=== PATIENT | male | born 1970 | race African-American/Black ===

== ENCOUNTER 2019-06-26 10:33 | Emergency (ER) | payer SELFPAY ==
[~2019-06-26] VITALS: Ht 175.3 cm; Wt 106.6 kg
[2019-06-26 10:42] VITALS: BP 136/79
--- NOTE | 2019-06-26 10:42 | NUR ---
ED Nurse Note: Pt is AAOx4, vss, with no signs of distress. Patient walked into ED c/o right knee pain radiaitng to his foot that he first noticed 2 days ago, states that [place], describes the pain as a constricting pain
[2019-06-26] MEDS ORDERED: NKM (10:44)
--- NOTE | 2019-06-26 10:49 | Emergency Room Report ---
History of Present Illness General Chief Complaint: Pain Source: Patient Present Illness HPI Patient presents with complaints of right lower leg swelling and discomfort Patient reports that he took a train from [place] And has now noticed some increased discomfort and pressure in the right leg starting around the knee area down to the calf Denies any fall or trauma denies any chest pain or shortness of breath denies any pleurisy patient had previous Achilles tendon injury but denies any recent trauma Pain is 3 out of 10 pressure-like Allergies: Coded Allergies: No Known Allergies (Unverified , 06/26/19) Patient History Past Medical History: see triage record Reviewed Nursing Documentation: PMH: Agreed; PSxH: Agreed Nursing Documentation-PMH Past Medical History: No Stated History Review of Systems All Other Systems: negative except mentioned in HPI Physical Exam Vital Signs Date Time Temp Pulse Resp B/P (MAP) Pulse Ox O2 Delivery O2 Flow Rate FiO2 06/26/19 10:37 98.4 78 18 146/81 (102) 96 Room Air Sp02 EP Interpretation: reviewed, normal General Appearance: well appearing, no apparent distress Head: normocephalic, atraumatic Eyes: bilateral eye PERRL, bilateral eye EOMI ENT: hearing grossly normal, normal pharynx, TMs + canals normal, uvula midline Neck: full range of motion, supple, no meningismus, no bony tend Respiratory: lungs clear, normal breath sounds, no rhonchi, no respiratory distress, no retraction, no accessory muscle use Cardiovascular #1: normal peripheral pulses, regular rate, rhythm, no gallop, no JVD, no murmur Gastrointestinal: normal bowel sounds, non tender, soft, no mass, no organomegaly, non-distended, no guarding, no hernia, no pulsatile mass, no rebound Genitourinary: no CVA tenderness Musculoskeletal: other - Patient does have some minimal effusion in the right knee compared to the left side small swelling is noted to the calf compared to the left side as well,, sensory intact Neurologic: oriented x3, responsive, 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, motor strength/ tone normal, sensory intact Psychiatric: mood/affect normal Skin: other - As above Lymphatic: normal inspection, no adenopathy Medical Decision Making Diagnostic Impression: Primary Impression: Knee effusion ER Course Given the patient's history and presentation ultrasound imaging is obtained to rule out DVT this was negative however it does clinically also correlate with showing Right-sided effusion At this time consideration Is low regarding infectious process, or septic joint patient does report significant arthritic changes from previous likely secondary effusion from that patient is stable for close outpatient follow-up CT/MRI/US Diagnostic Results CT/MRI/US Diagnostic Results : Impression Lower extremity ultrasound right negative for acute DVT: Last Vital Signs Date Time Temp Pulse Resp B/P (MAP) Pulse Ox O2 Delivery O2 Flow Rate FiO2 06/26/19 10:37 98.4 78 18 146/81 (102) 96 Room Air Status: improved Disposition: HOME, SELF-CARE Condition: Improved Scripts Ibuprofen* (MOTRIN*) 600 Mg Tablet 600 MG ORAL Q8H PRN for For Pain, #20 TAB 0 Refills Prov: Tesfaye Bravo DO 06/26/19 Additional Instructions: Patient is provided with the discharge instructions notified to follow up with primary doctor in the next 2-3 days otherwise return to the er with any worsening symptoms. Please note that this report is being documented using [employer] technology. This can lead to erroneous entry secondary to incorrect interpretation by the dictating instrument. Tesfaye Bravo DO Jun 26, 2019 10:49
--- NOTE | 2019-06-26 11:30 | NUR ---
ED Nurse Note: Venous Duplex completed.
[2019-06-26] MEDS ORDERED: IBUPROFEN600 MG ORAL (12:24)
[2019-06-26 12:40] VITALS: BP 132/80
--- NOTE | 2019-06-26 12:40 | NUR ---
ER DISCHARGE NOTE: Patient is cleared to be discharged per ERMD, pt is aox4, on room air, with stable vital signs. pt was given dc and prescription instructions, pt was able to verbalize understanding, pt id band and iv site removed without complications. pt is able to ambulate with steady gait. pt took all belongings. Pt walked out with no complaints.
--- NOTE | 2019-06-26 13:05 | Diagnostic Imaging Report ---
EXAM: US Duplex Right Lower Extremity Veins CLINICAL HISTORY: MACK TECHNIQUE: Real-time duplex ultrasound scan of the right lower extremity veins integrating B-mode two-dimensional vascular structure, Doppler spectral analysis, color flow Doppler imaging and compression. COMPARISON: None FINDINGS: Deep veins: Unremarkable. No DVT in the visualized common femoral, femoral, proximal deep femoral or popliteal veins. The veins demonstrate normal color flow, are normally compressible, with normal phasic flow and or augmentation response. Superficial veins: Unremarkable. No thrombus in the visualized great saphenous vein. Soft tissues: No acute findings. No popliteal cyst. Other findings: Moderate right knee joint effusion. IMPRESSION: No deep venous thrombosis identified in the right lower extremity. Moderate right knee joint effusion.
== END 2019-06-26 12:40 | disposition home or self-care (01) ==
LOC: EMR 10:50
DX: M25.461 Effusion, right knee (principal)
CPT/HCPCS: 93971; 99284

== ENCOUNTER 2020-06-09 11:17 | Emergency (ER) | payer OTHER ==
[~2020-06-09] VITALS: Ht 172.7 cm; Wt 99.8 kg
[~2020-06-09 11:17] MED LIST: IBUPROFEN600 MG ORAL; NKM
--- NOTE | 2020-06-09 11:25 | NUR ---
ED Nurse Note: Pt ambulated to ED d/t neck and back pain and pain on the RT achilles tendon . Pt is AOx4, calm and cooperative, pt denies any recent trauma/injury. Pt's VSS, on RA, afebrile on triage.
[2020-06-09 11:31] VITALS: BP 148/90
--- NOTE | 2020-06-09 11:50 | NUR ---
ED Nurse Note: ERMD at bedside.
--- NOTE | 2020-06-09 11:59 | Emergency Room Report ---
History of Present Illness General Chief Complaint: Back Pain-No Injury Source: Patient Present Illness HPI The patient presents with increased neck and lower back pain and also right Achilles tendon pain. He has a history of degenerative disc disease. At work he was noticing increased neck and lower back pain. The pain is rated at this time at 9/10. He has occasional numbness in his hands that does not seem to be related to the neck pain. He denies any weakness. In addition 3 years ago had injury to his Achilles tendon. The pain in the Achilles tendon is worse at this time. He might of kicked it in his sleep. He was seen in our emergency department 2 weeks ago. He was seen recently and prescribed Motrin 800 mg but did not fill the prescription. He has not taken any medication recently for pain. He denies any fevers or chills. There is no trauma to his back recently. He is not taking blood thinners. There is no incontinence of urine or stool. There is no saddle paresthesias. He does not use IV drugs. The patient denies exposure to COVID-19 positive contacts. No sore throat, chest pain, palpitations, nausea, vomiting, diarrhea, dysuria, abdominal pain, shortness of breath, rashes, depression, anxiety, visual changes, dizziness, headache. 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 Reviewed Nursing Documentation: PMH: Agreed; PSxH: Agreed Nursing Documentation-PMH Past Medical History: No Stated History Review of Systems All Other Systems: negative except mentioned in HPI Physical Exam Vital Signs Date Time Temp Pulse Resp B/P (MAP) Pulse Ox O2 Delivery O2 Flow Rate FiO2 06/09/20 11:19 97.7 79 18 148/90 (109) 100 Room Air Sp02 EP Interpretation: reviewed, normal General Appearance: well appearing, no apparent distress - Sleeping, GCS 15, non-toxic Head: normocephalic Eyes: bilateral eye PERRL, bilateral eye EOMI, bilateral eye Scleral Injection ENT: moist mucus membranes Neck: full range of motion, supple, other - Nods and shakes his head spontaneously, tender - Bilateral neck strap muscles Respiratory: chest non-tender, lungs clear, normal breath sounds Cardiovascular #1: regular rate, rhythm Cardiovascular #2: 2+ radial (R), 2+ dorsalis pedis (R), 2+ dorsalis pedis (L) Gastrointestinal: normal inspection, non tender, overweight Musculoskeletal: swelling - Achilles tendon, tenderness, other - Compression of calf leads to pronation of the foot Neurologic: alert, motor strength/tone normal, DTRs symmetric, oriented x3, sensory intact, cerebellar normal, speech normal Psychiatric: mood/affect normal Reflexes: 2+ knee (R), 2+ knee (L); 1+ ankle (R) - Slight tenderness with checking reflex, 1+ ankle (L) Skin: normal color, no rash, warm/dry Medical Decision Making Diagnostic Impression: Primary Impression: Back pain Qualified Codes: M54.5 - Low back pain; G89.29 - Other chronic pain Additional Impressions: Neck pain Strain of Achilles tendon Qualified Codes: S86.011D - Strain of right Achilles tendon, subsequent en counter Substance abuse ER Course Patient with known degenerative disc disease presents with neck and lower back pain. In addition he is complaining about Achilles tendon pain with a known injury in the past. Differential includes exacerbation of back pain, exacerbation of neck pain, degenerative disc disease, muscle spasm, back strain, neck strain, strain of Achilles tendon. Exam excludes rupture of Achilles tendon. No red flag signs or symptoms regarding back pain or neck pain. Imaging is not indicated at this time. Patient given a shot of Toradol. Because the patient is sleeping and initially slow to respond a tox screen and blood alcohol are ordered. Tox screen positive for amphetamines. Patient again sleeping. Awakened and states that the pain is greatly improved. Discussed with patient treatment plan. Also discussed positive tox screen. Recommended going to a 12-step program if the substances are significant in his life. Also discussed how the substances will have an effect on his pain and how he perceives the pain. I applied an Jaycob wrap to his right ankle. Tension excellent with relief. Di stal neurovascular exam performed by me normal after Jaycob application. Advised the patient to find a private physician to follow-up with. Also suggested that physical therapy would help. No medical emergency at this time. Patient stable for outpatient observation and treatment. Laboratory Tests Test 06/09/20 12:11 06/09/20 12:40 Urine Opiates Screen Negative (NEGATIVE) Urine Barbiturates Screen Negative (NEGATIVE) Phencyclidine (PCP) Screen Negative (NEGATIVE) Urine Amphetamines Screen Positive (NEGATIVE) H Urine Benzodiazepines Screen Negative (NEGATIVE) Urine Cocaine Screen Negative (NEGATIVE) Urine Marijuana (THC) Screen Negative (NEGATIVE) Serum Alcohol < 3 mg/dL Last Vital Signs Date Time Temp Pulse Resp B/P (MAP) Pulse Ox O2 Delivery O2 Flow Rate FiO2 06/09/20 13:04 97.7 19 144/88 99 Room Air 06/09/20 11:19 79 Status: improved Disposition: HOME, SELF-CARE Condition: Improved Scripts Acetaminophen (Tylenol) 325 Mg Tablet 650 MG ORAL Q6H PRN for Prn Pain/Headache/Temp > 101, #20 TAB 0 Refills Prov: Abel Pascal MD 06/09/20 Ibuprofen* (MOTRIN*) 600 Mg Tablet 600 MG ORAL Q6H PRN for FOR PAIN, #20 TAB 0 Refills Prov: Abel Pascal MD 06/09/20 Abel Pascal MD Jun 09, 2020 11:59
[2020-06-09] MEDS ORDERED: Ketorolac 60mg Inj IM ONE (12:00)
[2020-06-09] MEDS ORDERED: IBUPROFEN600 M1 ORAL (12:56)
[2020-06-09] MEDS ORDERED: TYLENOL325 MG ORAL (12:56)
[2020-06-09 13:04] VITALS: BP 144/88
--- NOTE | 2020-06-09 13:04 | NUR ---
ER DISCHARGE NOTE: Patient is cleared to be discharged per ERMD, pt is aox4, on room air, with stable vital signs. pt was given dc and prescription instructions, pt was able to verbalize understanding, pt id band removed. pt is able to ambulate with steady gait. pt took all belongings.
== END 2020-06-09 13:04 | disposition home or self-care (01) ==
LOC: EMR 12:12
DX: M54.5 Low back pain (principal); G89.29 Other chronic pain; M54.2 Cervicalgia; S86.011D Strain of right Achilles tendon, subsequent encounter; F19.10 Other psychoactive substance abuse, uncomplicated; X58.XXXD Exposure to other specified factors, subsequent encounter
CPT/HCPCS: 36415; 80307; 96372; G0480; Z7502; 99283